=== PATIENT | male | born 1960 | race African-American/Black ===

== ENCOUNTER 2022-07-27 08:19 | Emergency (ER) | payer MEDICAID ==
[~2022-07-27] VITALS: Ht 177.8 cm; Wt 91.0 kg
[2022-07-27] MEDS ORDERED: ASPIRIN 81MG TABLET PO ONE (14:15)
[2022-07-27] MEDS: KETOROLAC 15MG/ML VIAL IV NR ×2 (16:15→17:43)
[2022-07-27] MEDS ORDERED: SODIUM CHLORIDE 0.9% 500 ML IV ONE (16:15)
[2022-07-27 16:25] LABS: BASOPHILS % 0.6 % (0.0-2.0); EOSINOPHILS % 0.9 % (0.0-5.0); HEMOGLOBIN. 13.3 g/dL (14.0-18.0); MEAN CORPUSCULAR HEMOGLOBIN 29.5 pg (28.0-32.0); MEAN CORPUSCULAR VOLUME 86.7 fL (80.0-94.0); MEAN PLATELET VOLUME 9.4 fl (7.4-10.4); MONOCYTES % 8.4 % (2.0-8.0); NEUTROPHILS % 72.1 % (40.0-76.0); PLATELET 143 x1000/uL (130-400); RED CELL DISTRIBUTION WIDTH 14.1 % (11.6-14.6)
[2022-07-27 16:30] LABS: CHLORIDE 102 mEq/L (98-107)
[2022-07-27] MEDS ORDERED: IOHEXOL-350 100 ML BOTTLE ONE (18:33)
[2022-07-27 22:30] VITALS: BP 103/58
== END 2022-07-27 22:30 | disposition home or self-care (01) ==
LOC: ER 08:19
DX: R07.89 Other chest pain (principal); J45.909 Unspecified asthma, uncomplicated; E78.00 Pure hypercholesterolemia, unspecified; Z87.891 Personal history of nicotine dependence
CPT/HCPCS: 36415; 71045; 71275; 80053; 84484; 85025; 93005; 96361; 96374; 99285; J1885; Q9967